=== PATIENT | male | born 1960 | race Caucasian/White ===

== ENCOUNTER 2019-02-01 12:20 | Inpatient (IN) | payer OTHER, MEDICARE ==
[2019-02-01 13:09] LABS: ADD MAN DIFF? NO
[2019-02-01 13:13] LABS: WHITE BLOOD COUNT 11.3 10^3/ul (4.8-10.8)
[2019-02-01 13:13] LABS: BASOPHIL # 0.1 10^3/ul (0.0-0.1); BASOPHILS % 0.6 % (0.0-2.0); EOSINOPHILS # 0.5 10^3/ul (0.0-0.5); EOSINOPHILS % 4.2 % (0.0-7.0); HEMATOCRIT 38.1 % (42.0-52.0); HEMOGLOBIN 13.1 g/dl (14.0-18.0); LYMPHOCYTES # 2.4 10^3/ul (0.8-2.9); LYMPHOCYTES % 21.3 % (15.0-51.0); MEAN CORPUSCULAR HEMOGLOBIN 31.3 pg (29.0-33.0); MEAN CORPUSCULAR HGB CONC 34.4 g/dl (32.0-37.0); MEAN CORPUSCULAR VOLUME 91.1 fl (82.0-101.0); MEAN PLATELET VOLUME 8.2 fl (7.4-10.4); MONOCYTE # 0.8 10^3/ul (0.3-0.9); MONOCYTES % 6.8 % (0.0-11.0); NEUTROPHIL # 7.5 10^3/ul (1.6-7.5); NEUTROPHILS % 66.7 % (39.0-77.0); PLATELET COUNT 315 10^3/UL (140-415); RED BLOOD COUNT 4.18 10^6/ul (4.70-6.10); RED CELL DISTRIBUTION WIDTH 12.7 % (11.5-14.5)
[2019-02-01] MEDS: morphine 4 MG/ML VIAL IV (13:21)
[2019-02-01] MEDS: ONDANSETRON 4 MG INJ IV (13:21)
[2019-02-01 13:32] LABS: ANION GAP 8 (5-13); BLOOD UREA NITROGEN 15 mg/dl (7-20); CALCIUM 9.6 mg/dl (8.4-10.2); CARBON DIOXIDE 22 mmol/L (21-31); CHLORIDE 109 mmol/L (97-110); CREATININE 1.01 mg/dl (0.61-1.24); Estimated GFR > 60 mL/min (>60); GLUCOSE 146 mg/dl (70-220); INR 0.91; POTASSIUM 3.9 mmol/L (3.5-5.1); PROTIME 12.4 Sec (11.9-14.9); SODIUM 139 mmol/L (135-144)
[2019-02-01 13:33] LABS: PARTIAL THROMBOPLASTIN TIME 28.7 Sec (23.0-35.0)
[2019-02-01 13:44] LABS: TROPONIN-I < 0.012 ng/ml (0.000-0.120)
[2019-02-01] MEDS ORDERED: ONDANSETRON 4 MG INJ IV ×2 (15:00→15:30)
[2019-02-01] MEDS ORDERED: ACETAMINOPHEN 325 MG TAB PO (15:00)
[2019-02-01] MEDS ORDERED: NACL 0.9% 3 ML SYG IV (15:30)
[2019-02-01] MEDS ORDERED: VANCOMYCIN IV PER PHARMACY XX (15:30)
[2019-02-01] MEDS: HYDROCODONE/APAP (5/325) TAB PO ×2 (15:34→21:38)
[2019-02-01] MEDS: NICOTINE (21 MG/24 HR) PATCH TRANSDERM (15:56)
[2019-02-01] MEDS ORDERED: DEXTROSE 50% 50 ML SYRINGE IV ×2 (16:00)
[2019-02-01] MEDS ORDERED: GLUCOSE GEL 15 GRAM TUBE PO ×2 (16:00)
[2019-02-01] MEDS ORDERED: GLUCOSE GEL 15 GRAM TUBE BUCCAL (16:00)
[2019-02-01] MEDS ORDERED: GLUCAGON 1 MG INJ IM (16:00)
[2019-02-01] MEDS: PIPER-TAZO 3.375 GM IV (PMX) 100 ML IVPB (17:53)
[2019-02-01] MEDS: INSULIN ASPART [NOVOLOG] 3 ML PEN SC ×2 (18:05→21:00)
[2019-02-01] MEDS: HYDROmorphONE 1 MG/ML SYG IV (18:08)
[2019-02-01] MEDS: VANCOMYCIN 1.25 GM/NS 250 ML 250 ML IVPB (18:35)
[2019-02-01] MEDS: COLLAGENASE 5 GM (UD JAR) TOP (18:36)
[2019-02-02] MEDS: PIPER-TAZO 3.375 GM IV (PMX) 100 ML IVPB ×5 (00:15→23:19)
[2019-02-02] MEDS: ACCU-CHEK XX (02:00)
[2019-02-02] MEDS: HYDROCODONE/APAP (5/325) TAB PO ×4 (03:54→21:25)
[2019-02-02] MEDS: VANCOMYCIN 750 MG (PMX) 250 ML IVPB ×2 (06:46→18:15)
[2019-02-02 07:16] LABS: ADD MAN DIFF? NO
[2019-02-02 07:23] LABS: BASOPHIL # 0.1 10^3/ul (0.0-0.1); BASOPHILS % 0.6 % (0.0-2.0); EOSINOPHILS # 0.5 10^3/ul (0.0-0.5); EOSINOPHILS % 5.5 % (0.0-7.0); HEMATOCRIT 37.1 % (42.0-52.0); HEMOGLOBIN 12.3 g/dl (14.0-18.0); LYMPHOCYTES # 2.1 10^3/ul (0.8-2.9); LYMPHOCYTES % 21.9 % (15.0-51.0); MEAN CORPUSCULAR HEMOGLOBIN 31.3 pg (29.0-33.0); MEAN CORPUSCULAR HGB CONC 33.2 g/dl (32.0-37.0); MEAN CORPUSCULAR VOLUME 94.4 fl (82.0-101.0); MEAN PLATELET VOLUME 8.6 fl (7.4-10.4); MONOCYTE # 0.7 10^3/ul (0.3-0.9); MONOCYTES % 7.5 % (0.0-11.0); NEUTROPHIL # 6.1 10^3/ul (1.6-7.5); NEUTROPHILS % 64.3 % (39.0-77.0); PLATELET COUNT 293 10^3/UL (140-415); RED BLOOD COUNT 3.93 10^6/ul (4.70-6.10); RED CELL DISTRIBUTION WIDTH 12.4 % (11.5-14.5)
[2019-02-02 07:23] LABS: WHITE BLOOD COUNT 9.5 10^3/ul (4.8-10.8)
[2019-02-02 07:43] LABS: HEMOGLOBIN A1C 7.7 % (0-5.9)
[2019-02-02 07:48] LABS: ALANINE AMINOTRANSFERASE 15 IU/L (13-69); ALBUMIN 3.6 g/dl (3.3-4.9); ALKALINE PHOSPHATASE 83 IU/L (42-121); ANION GAP 5 (5-13); ASPARTATE AMINO TRANSFERASE 16 IU/L (15-46); BILIRUBIN,INDIRECT 0.3 mg/dl (0-1.1); BILIRUBIN,TOTAL 0.3 mg/dl (0.2-1.3); BLOOD UREA NITROGEN 19 mg/dl (7-20); CALCIUM 9.3 mg/dl (8.4-10.2); CARBON DIOXIDE 24 mmol/L (21-31); CHLORIDE 109 mmol/L (97-110); CHOL/HDL RATIO 3.8 RATIO; CHOLESTEROL 103 mg/dl (100-200); CREATININE 1.21 mg/dl (0.61-1.24); Estimated GFR > 60 mL/min (>60); GLUCOSE 116 mg/dl (70-220); HDL CHOLESTEROL 27 mg/dl (28-71); LDL CHOLESTEROL,CALCULATED 53 mg/dl; MAGNESIUM 1.7 mg/dl (1.7-2.5); PHOSPHORUS 4.6 mg/dl (2.5-4.9); POTASSIUM 4.2 mmol/L (3.5-5.1); SODIUM 138 mmol/L (135-144); TOTAL PROTEIN 6.6 g/dl (6.1-8.1); TRIGLYCERIDES 115 mg/dl (0-149)
[2019-02-02] MEDS: INSULIN ASPART [NOVOLOG] 3 ML PEN SC ×4 (08:00→21:00)
[2019-02-02] MEDS: AMLODIPINE 10 MG TAB PO (09:54)
[2019-02-02] MEDS: COLLAGENASE 5 GM (UD JAR) TOP (09:55)
[2019-02-02] MEDS: ENOXAPARIN 40 MG/0.4 ML SYG SC (09:56)
[2019-02-02] MEDS: NICOTINE (21 MG/24 HR) PATCH TRANSDERM (12:15)
[2019-02-02] MEDS: ACETAMINOPHEN 325 MG TAB PO (20:13)
[2019-02-03] MEDS: HYDROmorphONE 1 MG/ML SYG IV ×6 (01:09→22:07)
[2019-02-03] MEDS: ACCU-CHEK XX (02:00)
[2019-02-03] MEDS: PIPER-TAZO 3.375 GM IV (PMX) 100 ML IVPB ×4 (05:20→23:50)
[2019-02-03] MEDS: VANCOMYCIN 750 MG (PMX) 250 ML IVPB ×2 (06:42→18:13)
[2019-02-03] MEDS: INSULIN ASPART [NOVOLOG] 3 ML PEN SC ×4 (08:00→21:01)
[2019-02-03] MEDS: ENOXAPARIN 40 MG/0.4 ML SYG SC (08:46)
[2019-02-03] MEDS: AMLODIPINE 10 MG TAB PO (08:46)
[2019-02-03] MEDS: NICOTINE (21 MG/24 HR) PATCH TRANSDERM (09:18)
[2019-02-03] MEDS: COLLAGENASE 5 GM (UD JAR) TOP (11:20)
[2019-02-03] MEDS: HYDROCODONE/APAP (5/325) TAB PO ×3 (11:20→20:21)
[2019-02-04] MEDS: HYDROCODONE/APAP (5/325) TAB PO ×4 (00:38→14:34)
[2019-02-04] MEDS: ACCU-CHEK XX (01:53)
[2019-02-04] MEDS: HYDROmorphONE 1 MG/ML SYG IV ×4 (02:07→12:42)
[2019-02-04] MEDS: PIPER-TAZO 3.375 GM IV (PMX) 100 ML IVPB ×3 (05:28→17:18)
[2019-02-04] MEDS: VANCOMYCIN 750 MG (PMX) 250 ML IVPB ×2 (06:13→18:07)
[2019-02-04] MEDS: INSULIN ASPART [NOVOLOG] 3 ML PEN SC ×4 (07:55→21:07)
[2019-02-04] MEDS: NICOTINE (21 MG/24 HR) PATCH TRANSDERM (08:26)
[2019-02-04] MEDS: AMLODIPINE 10 MG TAB PO (08:27)
[2019-02-04 08:33] LABS: ADD MAN DIFF? NO
[2019-02-04 08:44] LABS: WHITE BLOOD COUNT 11.5 10^3/ul (4.8-10.8)
[2019-02-04 08:44] LABS: BASOPHIL # 0.1 10^3/ul (0.0-0.1); BASOPHILS % 0.5 % (0.0-2.0); EOSINOPHILS # 0.6 10^3/ul (0.0-0.5); EOSINOPHILS % 4.8 % (0.0-7.0); HEMATOCRIT 39.5 % (42.0-52.0); HEMOGLOBIN 13.4 g/dl (14.0-18.0); LYMPHOCYTES # 1.9 10^3/ul (0.8-2.9); LYMPHOCYTES % 16.1 % (15.0-51.0); MEAN CORPUSCULAR HEMOGLOBIN 31.5 pg (29.0-33.0); MEAN CORPUSCULAR HGB CONC 33.9 g/dl (32.0-37.0); MEAN CORPUSCULAR VOLUME 92.7 fl (82.0-101.0); MEAN PLATELET VOLUME 8.7 fl (7.4-10.4); MONOCYTE # 0.9 10^3/ul (0.3-0.9); MONOCYTES % 8.1 % (0.0-11.0); NEUTROPHIL # 8.1 10^3/ul (1.6-7.5); PLATELET COUNT 323 10^3/UL (140-415); RED BLOOD COUNT 4.26 10^6/ul (4.70-6.10); RED CELL DISTRIBUTION WIDTH 12.3 % (11.5-14.5)
[2019-02-04 09:19] LABS: ANION GAP 8 (5-13); BLOOD UREA NITROGEN 15 mg/dl (7-20); CALCIUM 9.8 mg/dl (8.4-10.2); CARBON DIOXIDE 27 mmol/L (21-31); CHLORIDE 104 mmol/L (97-110); CREATININE 0.96 mg/dl (0.61-1.24); Estimated GFR > 60 mL/min (>60); GLUCOSE 121 mg/dl (70-220); MAGNESIUM 1.8 mg/dl (1.7-2.5); POTASSIUM 3.8 mmol/L (3.5-5.1); SODIUM 139 mmol/L (135-144)
[2019-02-04] MEDS: ENOXAPARIN 40 MG/0.4 ML SYG SC (11:31)
[2019-02-04] MEDS: COLLAGENASE 5 GM (UD JAR) TOP (13:38)
[2019-02-04] MEDS: HYDROCODONE/APAP (7.5/325) TAB PO ×2 (17:32→21:39)
[2019-02-04] MEDS: HYDROmorphONE 0.5 MG/0.5 ML SYG IV ×2 (19:05→23:44)
[2019-02-04] MEDS ORDERED: HYDROmorphONE 0.5 MG/0.5 ML SYG IV (20:30)
[2019-02-05] MEDS: PIPER-TAZO 3.375 GM IV (PMX) 100 ML IVPB ×4 (01:15→18:11)
[2019-02-05] MEDS: ACCU-CHEK XX (01:19)
[2019-02-05] MEDS: HYDROCODONE/APAP (7.5/325) TAB PO ×4 (01:51→18:58)
[2019-02-05] MEDS: HYDROmorphONE 0.5 MG/0.5 ML SYG IV ×4 (04:23→20:42)
[2019-02-05] MEDS: VANCOMYCIN 750 MG (PMX) 250 ML IVPB ×2 (05:16→18:49)
[2019-02-05 06:08] LABS: ADD MAN DIFF? NO
[2019-02-05 06:30] LABS: WHITE BLOOD COUNT 9.9 10^3/ul (4.8-10.8)
[2019-02-05 06:30] LABS: BASOPHILS % 0.4 % (0.0-2.0); EOSINOPHILS # 0.5 10^3/ul (0.0-0.5); EOSINOPHILS % 5.3 % (0.0-7.0); HEMOGLOBIN 12.5 g/dl (14.0-18.0); LYMPHOCYTES % 20.4 % (15.0-51.0); MEAN CORPUSCULAR HEMOGLOBIN 31.2 pg (29.0-33.0); MEAN CORPUSCULAR HGB CONC 33.8 g/dl (32.0-37.0); MEAN CORPUSCULAR VOLUME 92.3 fl (82.0-101.0); MEAN PLATELET VOLUME 8.9 fl (7.4-10.4); MONOCYTE # 1.1 10^3/ul (0.3-0.9); MONOCYTES % 10.7 % (0.0-11.0); NEUTROPHIL # 6.2 10^3/ul (1.6-7.5); NEUTROPHILS % 62.9 % (39.0-77.0); PLATELET COUNT 303 10^3/UL (140-415); RED BLOOD COUNT 4.01 10^6/ul (4.70-6.10); RED CELL DISTRIBUTION WIDTH 12.3 % (11.5-14.5)
[2019-02-05 06:45] LABS: ANION GAP 7 (5-13); BLOOD UREA NITROGEN 13 mg/dl (7-20); CALCIUM 9.3 mg/dl (8.4-10.2); CARBON DIOXIDE 26 mmol/L (21-31); CHLORIDE 104 mmol/L (97-110); Estimated GFR > 60 mL/min (>60); GLUCOSE 143 mg/dl (70-220); SODIUM 137 mmol/L (135-144)
[2019-02-05 06:53] LABS: MAGNESIUM 1.8 mg/dl (1.7-2.5)
[2019-02-05 06:53] LABS: PHOSPHORUS 3.6 mg/dl (2.5-4.9)
[2019-02-05] MEDS: INSULIN ASPART [NOVOLOG] 3 ML PEN SC ×4 (08:41→20:41)
[2019-02-05] MEDS: ENOXAPARIN 40 MG/0.4 ML SYG SC (08:43)
[2019-02-05] MEDS: NICOTINE (21 MG/24 HR) PATCH TRANSDERM (09:33)
[2019-02-05] MEDS: AMLODIPINE 10 MG TAB PO (09:34)
[2019-02-05] MEDS: COLLAGENASE 5 GM (UD JAR) TOP (09:35)
[2019-02-06] MEDS: PIPER-TAZO 3.375 GM IV (PMX) 100 ML IVPB ×5 (00:12→23:37)
[2019-02-06] MEDS: HYDROCODONE/APAP (7.5/325) TAB PO ×4 (00:12→21:57)
[2019-02-06] MEDS: HYDROmorphONE 0.5 MG/0.5 ML SYG IV ×5 (00:51→18:44)
[2019-02-06] MEDS: INSULIN ASPART [NOVOLOG] 3 ML PEN SC ×6 (02:00→21:23)
[2019-02-06] MEDS: ACCU-CHEK XX (02:28)
[2019-02-06] MEDS: VANCOMYCIN 750 MG (PMX) 250 ML IVPB ×2 (05:53→17:21)
[2019-02-06 06:01] LABS: ADD MAN DIFF? NO
[2019-02-06 06:02] LABS: BASOPHIL # 0.1 10^3/ul (0.0-0.1); BASOPHILS % 0.6 % (0.0-2.0); EOSINOPHILS # 0.6 10^3/ul (0.0-0.5); HEMATOCRIT 35.7 % (42.0-52.0); HEMOGLOBIN 11.9 g/dl (14.0-18.0); LYMPHOCYTES # 1.7 10^3/ul (0.8-2.9); LYMPHOCYTES % 21.3 % (15.0-51.0); MEAN CORPUSCULAR HEMOGLOBIN 31.1 pg (29.0-33.0); MEAN CORPUSCULAR HGB CONC 33.3 g/dl (32.0-37.0); MEAN CORPUSCULAR VOLUME 93.2 fl (82.0-101.0); MEAN PLATELET VOLUME 8.7 fl (7.4-10.4); MONOCYTE # 0.8 10^3/ul (0.3-0.9); MONOCYTES % 9.7 % (0.0-11.0); NEUTROPHIL # 4.9 10^3/ul (1.6-7.5); PLATELET COUNT 290 10^3/UL (140-415); RED BLOOD COUNT 3.83 10^6/ul (4.70-6.10); RED CELL DISTRIBUTION WIDTH 12.3 % (11.5-14.5)
[2019-02-06 06:25] LABS: PHOSPHORUS 3.8 mg/dl (2.5-4.9)
[2019-02-06 06:25] LABS: MAGNESIUM 1.8 mg/dl (1.7-2.5)
[2019-02-06 06:29] LABS: ANION GAP 7 (5-13); BLOOD UREA NITROGEN 13 mg/dl (7-20); CALCIUM 9.6 mg/dl (8.4-10.2); CARBON DIOXIDE 26 mmol/L (21-31); CHLORIDE 105 mmol/L (97-110); CREATININE 0.96 mg/dl (0.61-1.24); Estimated GFR > 60 mL/min (>60); GLUCOSE 130 mg/dl (70-220); POTASSIUM 4.3 mmol/L (3.5-5.1); SODIUM 138 mmol/L (135-144)
[2019-02-06] MEDS: ENOXAPARIN 40 MG/0.4 ML SYG SC (09:00)
[2019-02-06] MEDS: AMLODIPINE 10 MG TAB PO (09:19)
[2019-02-06] MEDS: COLLAGENASE 5 GM (UD JAR) TOP (09:24)
[2019-02-06] MEDS ORDERED: FENTAnyl 50 MCG/ML VIAL (11:10)
[2019-02-06] MEDS ORDERED: HEPARIN 1000 UNITS/NS (A-LINE) 1,000 ML (11:10)
[2019-02-06] MEDS ORDERED: MIDAZOLAM 1 MG/ML 2 ML INJ (11:10)
[2019-02-06] MEDS ORDERED: LIDOCAINE 1% (MDV) 20 ML INJ (11:10)
[2019-02-06] MEDS ORDERED: IODIXANOL LOCM 100 ML BTL (11:11)
[2019-02-06] MEDS ORDERED: ASPIRIN 81 MG TAB (12:37)
[2019-02-06] MEDS ORDERED: CLOPIDOGREL 300 MG TAB (12:37)
[2019-02-06] MEDS ORDERED: LABETALOL HCL 20MG INJ (13:20)
[2019-02-06] MEDS: LABETALOL HCL 20MG INJ IV (13:48)
[2019-02-06] MEDS: SOD CHLORIDE 0.9% 1,000 ML IV (13:56)
[2019-02-06] MEDS ORDERED: SOD CHLORIDE 0.9% 1,000 ML IV (14:00)
[2019-02-06] MEDS ORDERED: hydrALAzine 20 MG INJ IV (15:00)
[2019-02-06] MEDS: NICOTINE (21 MG/24 HR) PATCH TRANSDERM (15:25)
[2019-02-06] MEDS: hydrALAzine 20 MG INJ IV (15:35)
[2019-02-06] MEDS: HYDROmorphONE 1 MG/ML SYG IV (23:23)
[2019-02-07] MEDS: HYDROCODONE/APAP (7.5/325) TAB PO ×2 (02:18→06:18)
[2019-02-07] MEDS: ACCU-CHEK XX ×2 (02:24)
[2019-02-07] MEDS: HYDROmorphONE 1 MG/ML SYG IV ×2 (03:28→08:08)
[2019-02-07] MEDS: PIPER-TAZO 3.375 GM IV (PMX) 100 ML IVPB ×2 (05:11→12:11)
[2019-02-07] MEDS: VANCOMYCIN 750 MG (PMX) 250 ML IVPB ×2 (06:11→17:18)
[2019-02-07] MEDS: INSULIN ASPART [NOVOLOG] 3 ML PEN SC ×4 (08:00→20:59)
[2019-02-07] MEDS: COLLAGENASE 5 GM (UD JAR) TOP (08:08)
[2019-02-07] MEDS: NICOTINE (21 MG/24 HR) PATCH TRANSDERM (08:08)
[2019-02-07] MEDS: CLOPIDOGREL 75 MG TAB PO (08:09)
[2019-02-07] MEDS: ASPIRIN 81 MG TAB PO (08:09)
[2019-02-07] MEDS: ENOXAPARIN 40 MG/0.4 ML SYG SC (08:10)
[2019-02-07] MEDS: AMLODIPINE 10 MG TAB PO (08:18)
[2019-02-07] MEDS: HYDROCODONE/APAP (10/325) TAB PO ×3 (12:17→21:27)
[2019-02-07] MEDS: HYDROmorphONE 0.5 MG/0.5 ML SYG IV ×3 (14:45→22:50)
[2019-02-07] MEDS: hydrALAzine 20 MG INJ IV (21:27)
[2019-02-08] MEDS: ACCU-CHEK XX ×2 (01:38)
[2019-02-08] MEDS: HYDROCODONE/APAP (10/325) TAB PO ×6 (02:44→23:51)
[2019-02-08] MEDS: HYDROmorphONE 0.5 MG/0.5 ML SYG IV ×5 (03:32→20:32)
[2019-02-08] MEDS: VANCOMYCIN 750 MG (PMX) 250 ML IVPB (05:14)
[2019-02-08] MEDS: LEVOFLOXACIN 500 MG TAB PO (05:14)
[2019-02-08] MEDS: INSULIN ASPART [NOVOLOG] 3 ML PEN SC ×4 (08:00→20:31)
[2019-02-08] MEDS: CLOPIDOGREL 75 MG TAB PO (08:01)
[2019-02-08] MEDS: ASPIRIN 81 MG TAB PO (08:01)
[2019-02-08] MEDS: NICOTINE (21 MG/24 HR) PATCH TRANSDERM (08:02)
[2019-02-08] MEDS: AMLODIPINE 10 MG TAB PO (08:02)
[2019-02-08] MEDS: COLLAGENASE 5 GM (UD JAR) TOP (08:03)
[2019-02-08] MEDS: ENOXAPARIN 40 MG/0.4 ML SYG SC (08:04)
[2019-02-09] MEDS: HYDROmorphONE 0.5 MG/0.5 ML SYG IV ×4 (00:34→13:58)
[2019-02-09] MEDS: ACCU-CHEK XX (01:16)
[2019-02-09] MEDS: HYDROCODONE/APAP (10/325) TAB PO ×3 (04:16→12:30)
[2019-02-09] MEDS: LEVOFLOXACIN 500 MG TAB PO (05:39)
[2019-02-09] MEDS: INSULIN ASPART [NOVOLOG] 3 ML PEN SC ×3 (08:00→17:18)
[2019-02-09] MEDS: COLLAGENASE 5 GM (UD JAR) TOP (08:05)
[2019-02-09] MEDS: NICOTINE (21 MG/24 HR) PATCH TRANSDERM (08:05)
[2019-02-09] MEDS: ASPIRIN 81 MG TAB PO (08:05)
[2019-02-09] MEDS: CLOPIDOGREL 75 MG TAB PO (08:05)
[2019-02-09] MEDS: ENOXAPARIN 40 MG/0.4 ML SYG SC (08:09)
[2019-02-09] MEDS: AMLODIPINE 10 MG TAB PO (08:09)
== END 2019-02-09 18:20 | disposition home or self-care (01) | DRG 271 ==
LOC: E/R 12:20 → PP2 14:38
PROC: 04CL3ZZ Extirpation of Matter from Left Femoral Artery, Percutaneous Approach (ICD-10-PCS; principal; 2019-02-06 11:00)
PROC: 047L3ZZ Dilation of Left Femoral Artery, Percutaneous Approach (ICD-10-PCS; 2019-02-06 11:00)
PROC: B400YZZ Plain Radiography of Abdominal Aorta using Other Contrast (ICD-10-PCS; 2019-02-06 11:00)
PROC: B40GYZZ Plain Radiography of Left Lower Extremity Arteries using Other Contrast (ICD-10-PCS; 2019-02-06 11:00)
DX: E11.52 Type 2 diabetes mellitus with diabetic peripheral angiopathy with gangrene (principal); I96 Gangrene, not elsewhere classified; E11.621 Type 2 diabetes mellitus with foot ulcer; L97.529 Non-pressure chronic ulcer of other part of left foot with unspecified severity; I10 Essential (primary) hypertension; F17.210 Nicotine dependence, cigarettes, uncomplicated; Z79.4 Long term (current) use of insulin
CPT/HCPCS: 36415; 71045; 73564; 73630-LT; 75630; 80048; 80053; 80061; 80202; 82962; 83036; 83735; 84100; 84443; 84484; 85025; 85610; 85730; 87081; 93005; 93926; 93970; 96374; 96375; 99285-25